=== PATIENT | female | born 1950 | race Two or more races ===

== ENCOUNTER 2016-08-07 09:01 | Emergency (ER) | payer OTHER ==
[~2016-08-07] VITALS: Ht 170.2 cm; Wt 108.9 kg
[~2016-08-07 09:01] MED LIST: CARB25TA2 PO; DULO20CA PO; LACT10SO PO; LAM100T PO; Metronidazole PO; NEO500T PO; OMEP20CA5 OR; PROP60CA8 PO; RANI150C11 PO; TRAM-297 PO
[2016-08-07] MEDS ORDERED: SODIUM CHLORIDE 0.9% 1,000 ML IV ONE ×3 (09:58→11:43)
[2016-08-07] MEDS ORDERED: SODIUM CHLORIDE 0.9% 250 ML IV ONE (09:58)
[2016-08-07 10:00] LABS: Basophils # (auto) 0 uL; Basophils % (auto) 0.5 % (0.0-2.0); Eosinophils # (auto) 0 uL; Eosinophils % (auto) 0.7 % (0.0-7.0); Hemoglobin 13.5 g/dL (12.2-16.2); Lymphocytes # (auto) 0.9 uL; Lymphocytes % (auto) 12.9 % (10.0-50.0); Mean Corpuscular Hemoglobin 33.3 pg (28.0-32.0); Mean Corpuscular Hgb Conc. 34.6 g/dL (32.0-36.0); Mean Corpuscular Volume 96.2 fL (80.0-100.0); Mean Platelet Volume 9.3 fL (7.4-10.4); Monocytes # (auto) 0.7 uL; Monocytes % (auto) 10.6 % (0.0-12.0); Neutrophils % (auto) 75.3 % (37.0-80.0); Platelet Count (auto) 118 10^3/uL (140-450); Red Cell Distribution Width 14.8 % (11.6-16.0); White Blood Cell 6.7 10^3/uL (4.4-10.8)
[2016-08-07] MEDS ORDERED: PIPERACILLIN-TAZOB 3.375GM 100 ML IV ONE (10:00)
[2016-08-07 10:20] LABS: Lactic Acid w/Reflex 2.1 mmol/L (0.4-2.0)
[2016-08-07 10:27] LABS: Albumin 2.5 g/dL (3.4-5.0); BUN/Creatinine Ratio 13.8; Bilirubin, Total 4.8 mg/dL (0.2-1.0); Calcium 7.8 mg/dL (8.5-10.1); Magnesium 2.1 mg/dL (1.6-2.6); Partial Thromboplastin Time 28.3 sec (22.64-33.71); Total Protein 6.5 g/dL (6.4-8.2)
[2016-08-07] MEDS ORDERED: ONDANSETRON HCL 4 MG/2 ML VIAL IV ONE (10:30)
[2016-08-07] MEDS ORDERED: MORPHINE SULFATE 4 MG/ML SYRG IV ONE (10:30)
[2016-08-07 10:38] LABS: INR 1.18 (0.9-1.15); Prothrombin Time 12.7 sec (9.37-12.3)
[2016-08-07 10:44] LABS: Potassium 3.6 mmol/L (3.5-5.1)
[2016-08-07 10:50] LABS: REFLEX LACTIC ACID YES OR NO YES
[2016-08-07 11:01] LABS: B-Type Natriuretic Peptide 49.76 pg/mL (0-100)
[2016-08-07 11:10] LABS: Temperature: 22.9 C (20.0-25.0)
[2016-08-07] MEDS ORDERED: metroNIDAZOLE 500MG/100ML 100 ML IV ONE (11:45)
[2016-08-07] MEDS ORDERED: VANCOMYCIN 1GM/250ML D5W 250 ML IV ONE (15:15)
[2016-08-07 16:45] LABS: Urine Color Yellow (Yellow); Urine Glucose Normal (Normal); Urine Ketone Negative (Negative); Urine Nitrite Negative (Negative); Urine RBC 2 /hpf (0 - 4); Urine Squamous Epithelial Cell FEW /hpf (<5)
[2016-08-07 17:05] LABS: Urine Bilirubin POSITIVE (Negative); Urine Blood 1+ /uL (Negative)
[2016-08-07 18:01] VITALS: BP 136/64
== END 2016-08-07 18:43 | disposition home or self-care (01) ==
LOC: ER 09:01
DX: A41.9 Sepsis, unspecified organism (principal); R53.1 Weakness; M19.90 Unspecified osteoarthritis, unspecified site; Z85.3 Personal history of malignant neoplasm of breast; E78.5 Hyperlipidemia, unspecified; K74.60 Unspecified cirrhosis of liver; Z90.49 Acquired absence of other specified parts of digestive tract
CPT/HCPCS: 36415; 71020; 74176; 80053; 81001; 82140; 83605; 83735; 83880; 84484; 85025; 85610; 85730; 87040; 96365; 96366; 96367; 96375; 99291; J2270; J2405; J2543; J3370; J3490; J7030; 87077; 87186; 93005

== ENCOUNTER 2016-12-25 12:09 | Inpatient (IN) | payer OTHER ==
[~2016-12-25] VITALS: Ht 170.2 cm; Wt 105.0 kg
[~2016-12-25 12:09] MED LIST changes: -LACT10SO PO; +LACT10SO3 PO; -OMEP20CA5 OR; +OMEP20CA74 OR
[2016-12-25] MEDS ORDERED: cefTRIAXone 1GM/50ML D5W 50 ML IV ONE (13:15)
[2016-12-25 13:21] LABS: Basophils # (auto) 0.1 uL; CONDITION Y; Eosinophils # (auto) 0.3 uL; Eosinophils % (auto) 6.9 % (0.0-7.0); Hematocrit 36.1 % (36.0-46.0); Hemoglobin 12.8 g/dL (12.2-16.2); Lymphocytes # (auto) 1.1 uL; Lymphocytes % (auto) 28.7 % (10.0-50.0); Mean Corpuscular Hemoglobin 35.1 pg (28.0-32.0); Mean Corpuscular Hgb Conc. 35.3 g/dL (32.0-36.0); Mean Corpuscular Volume 99.4 fL (80.0-100.0); Mean Platelet Volume 8.7 fL (7.4-10.4); Monocytes # (auto) 0.5 uL; Monocytes % (auto) 11.5 % (0.0-12.0); Neutrophils % (auto) 50.9 % (37.0-80.0); Platelet Count (auto) 129 10^3/uL (140-450); Red Cell Distribution Width 16.8 % (11.6-16.0)
[2016-12-25 13:44] LABS: Albumin 2.5 g/dL (3.4-5.0); Anion Gap 6 (5-15); Aspartate Aminotransferase 51 U/L (15-37); Blood Urea Nitrogen 9 mg/dL (7-18); Calcium 8.1 mg/dL (8.5-10.1); Carbon Dioxide 26 mmol/L (21-32); Chloride 111 mmol/L (98-107); GFR African American 99 mL/min; GFR Non-African American 82 mL/min; Glucose 92 mg/dL (74-106); Potassium 3.5 mmol/L (3.5-5.1); Sodium 143 mmol/L (136-145)
[2016-12-25 13:49] LABS: Alkaline Phosphatase 141 U/L (45-117); Bilirubin, Total 2.7 mg/dL (0.2-1.0); Total Protein 5.9 g/dL (6.4-8.2)
[2016-12-25 13:54] LABS: B-Type Natriuretic Peptide 53.88 pg/mL (0-100)
[2016-12-25 13:56] LABS: Temperature: 22.4 C (20.0-25.0)
[2016-12-25] MEDS ORDERED: SPIR50TA23 PO (14:39)
[2016-12-25] MEDS ORDERED: FURO20TA PO (14:39)
[2016-12-25] MEDS ORDERED: NITROGLYCERIN 0.4 MG SL TAB SL PRN (14:45)
[2016-12-25] MEDS ORDERED: FUROSEMIDE 20 MG/2 ML VIAL IV ONE (15:00)
[2016-12-25] MEDS ORDERED: LEVOFLOXACIN 500MG 100 ML IV ONE (15:00)
[2016-12-25] MEDS: MORPHINE SULF INJ 2 MG/ML SYRINGE 1ML IV PRN (15:06)
[2016-12-25 16:25] LABS: INR 1.25 (0.9-1.15); Partial Thromboplastin Time 29.9 sec (22.64-33.71); Prothrombin Time 13.7 sec (9.37-12.3)
[2016-12-25 17:01] LABS: Urine Bilirubin Negative (Negative); Urine Blood Negative /uL (Negative); Urine Color Yellow (Yellow); Urine Glucose Normal (Normal); Urine Hyaline Cast FEW /lpf (0 - 2); Urine Ketone Negative (Negative); Urine Mucus FEW (None Seen); Urine Nitrite Negative (Negative); Urine RBC <1 /hpf (0 - 4); Urine Squamous Epithelial Cell FEW /hpf (<5); Urine Urobilinogen Normal (Negative); Urine pH 5.5 (5.0-8.0)
[2016-12-25 20:15] VITALS: BP 124/60
[2016-12-25 21:30] VITALS: BP 124/60
[2016-12-26] MEDS: MORPHINE SULF INJ 2 MG/ML SYRINGE 1ML IV PRN ×6 (00:40→21:16)
[2016-12-26 05:00] VITALS: BP 102/41
[2016-12-26 07:01] LABS: Basophils # (auto) 0.1 uL; Basophils % (auto) 2.5 % (0.0-2.0); Eosinophils # (auto) 0.2 uL; Eosinophils % (auto) 6.4 % (0.0-7.0); Hemoglobin 12.2 g/dL (12.2-16.2); Lymphocytes % (auto) 27.9 % (10.0-50.0); Mean Corpuscular Hgb Conc. 34.9 g/dL (32.0-36.0); Mean Corpuscular Volume 100.4 fL (80.0-100.0); Mean Platelet Volume 8.6 fL (7.4-10.4); Monocytes # (auto) 0.5 uL; Monocytes % (auto) 13.2 % (0.0-12.0); Neutrophils # (auto) 1.7 uL; Nucleated Red Blood Cells % 0.6 %; Platelet Count (auto) 81 10^3/uL (140-450); Red Cell Distribution Width 16.1 % (11.6-16.0); White Blood Cell 3.4 10^3/uL (4.4-10.8)
[2016-12-26 07:07] LABS: Potassium 3.9 mmol/L (3.5-5.1)
[2016-12-26 07:12] LABS: BUN/Creatinine Ratio 16.7; Calcium 8.4 mg/dL (8.5-10.1)
[2016-12-26 08:00] VITALS: BP 126/56
[2016-12-26 08:07] VITALS: BP 126/56
[2016-12-26] MEDS ORDERED: LEVOFLOXACIN 500MG 100 ML IV SCH (10:00)
[2016-12-26] MEDS: FUROSEMIDE 20 MG/2 ML VIAL IV SCH (10:48)
[2016-12-26 12:33] VITALS: BP 134/68
[2016-12-26 17:00] VITALS: BP 117/49
[2016-12-26 22:00] VITALS: BP 160/54
[2016-12-26] MEDS ORDERED: VANCOMYCIN PER PHARMACY 0 MG IV SCH (22:00)
[2016-12-26] MEDS ORDERED: VANCOMYCIN 1GM/250ML D5W 250 ML IV ONE (22:30)
[2016-12-27] MEDS: PIPERACILLIN-TAZOB 3.375GM 100 ML IV SCH ×2 (01:36→05:48)
[2016-12-27] MEDS: MORPHINE SULF INJ 2 MG/ML SYRINGE 1ML IV PRN ×3 (01:36→12:06)
[2016-12-27 05:00] VITALS: BP 126/60
[2016-12-27 07:04] LABS: Basophils # (auto) 0.1 uL; Basophils % (auto) 2.6 % (0.0-2.0); Eosinophils # (auto) 0.3 uL; Eosinophils % (auto) 7.8 % (0.0-7.0); Hematocrit 38.6 % (36.0-46.0); Hemoglobin 13.2 g/dL (12.2-16.2); Lymphocytes # (auto) 0.9 uL; Lymphocytes % (auto) 26.3 % (10.0-50.0); Mean Corpuscular Hemoglobin 34.7 pg (28.0-32.0); Mean Corpuscular Hgb Conc. 34.4 g/dL (32.0-36.0); Mean Corpuscular Volume 100.9 fL (80.0-100.0); Mean Platelet Volume 8.9 fL (7.4-10.4); Monocytes # (auto) 0.5 uL; Monocytes % (auto) 14.7 % (0.0-12.0); Neutrophils # (auto) 1.7 uL; Neutrophils % (auto) 48.6 % (37.0-80.0); Nucleated Red Blood Cells % 0.2 %; Platelet Count (auto) 80 10^3/uL (140-450); Red Cell Distribution Width 15.5 % (11.6-16.0); White Blood Cell 3.4 10^3/uL (4.4-10.8)
[2016-12-27 07:23] LABS: Albumin 2.4 g/dL (3.4-5.0); BUN/Creatinine Ratio 15.7; Bilirubin, Total 2.5 mg/dL (0.2-1.0); Potassium 3.7 mmol/L (3.5-5.1); Total Protein 6.3 g/dL (6.4-8.2)
[2016-12-27 07:50] VITALS: BP 144/62
[2016-12-27] MEDS ORDERED: IOHEXOL 300 MG/ML 100ML BOTTLE IJ ONE (08:49)
[2016-12-27] MEDS ORDERED: VANCOMYCIN 1,250 MG in D5W 5% 250 ML IV SCH (10:00)
[2016-12-27] MEDS ORDERED: SPIRONOLACTONE 25 MG TAB PO SCH (10:00)
[2016-12-27 10:44] VITALS: BP 133/61
[2016-12-27] MEDS: FUROSEMIDE 20 MG/2 ML VIAL IV SCH (11:20)
[2016-12-27 13:48] VITALS: BP 144/62
== END 2016-12-27 14:25 | disposition hospice, home (50) | DRG 432 ==
LOC: ER 12:09 → EDBD 12:09 → TELE 12:10 → TELE-CENTR 20:15
PROVIDERS: ADMIT Internal Medicine; ATTEND Internal Medicine
PROC: 0W993ZZ Drainage of Right Pleural Cavity, Percutaneous Approach (ICD-10-PCS; principal; 2016-12-26)
PROC: BB4BZZZ Ultrasonography of Pleura (ICD-10-PCS; 2016-12-26)
DX: K74.69 Other cirrhosis of liver (principal); J18.9 Pneumonia, unspecified organism; J91.8 Pleural effusion in other conditions classified elsewhere; K76.6 Portal hypertension; R18.8 Other ascites; D69.59 Other secondary thrombocytopenia; D72.819 Decreased white blood cell count, unspecified; F17.200 Nicotine dependence, unspecified, uncomplicated; F32.9 Major depressive disorder, single episode, unspecified; F41.9 Anxiety disorder, unspecified; M19.90 Unspecified osteoarthritis, unspecified site; I10 Essential (primary) hypertension; K21.9 Gastro-esophageal reflux disease without esophagitis; Z85.3 Personal history of malignant neoplasm of breast; Z90.13 Acquired absence of bilateral breasts and nipples; Z92.21 Personal history of antineoplastic chemotherapy; Z90.49 Acquired absence of other specified parts of digestive tract; Z90.710 Acquired absence of both cervix and uterus; Z80.9 Family history of malignant neoplasm, unspecified; Z83.3 Family history of diabetes mellitus
CPT/HCPCS: 36415; 71010; 71260; 74176; 76604; 76942; 80048; 80053; 81001; 82140; 83605; 83735; 83880; 84484; 85025; 85610; 85730; 87040; 87081; 93005; 94761; 96365; 96375; J0696; J1956; J2543; J7060

== ENCOUNTER 2017-01-01 13:38 | Emergency (ER) | payer OTHER ==
[~2017-01-01] VITALS: Ht 167.6 cm; Wt 81.6 kg
[~2017-01-01 13:38] MED LIST changes: +FURO20TA PO; -LAM100T PO; -Metronidazole PO; -NEO500T PO; -OMEP20CA74 OR; +SPIR50TA23 PO
[2017-01-01] MEDS ORDERED: SODIUM CHLORIDE 0.9% 1,000 ML IV ONE (13:54)
[2017-01-01 14:43] LABS: Basophils # (auto) 0.1 uL; Basophils % (auto) 0.9 % (0.0-2.0); CONDITION Y; Eosinophils # (auto) 0.1 uL; Eosinophils % (auto) 1.6 % (0.0-7.0); Hematocrit 40.2 % (36.0-46.0); Lymphocytes # (auto) 1.2 uL; Lymphocytes % (auto) 14.6 % (10.0-50.0); Mean Corpuscular Hemoglobin 34.7 pg (28.0-32.0); Mean Corpuscular Hgb Conc. 34.7 g/dL (32.0-36.0); Mean Corpuscular Volume 99.9 fL (80.0-100.0); Mean Platelet Volume 8.8 fL (6.9-10.8); Monocytes # (auto) 0.7 uL; Monocytes % (auto) 9.1 % (0.0-12.0); Neutrophils # (auto) 5.9 uL; Neutrophils % (auto) 73.8 % (37.0-80.0); Platelet Count (auto) 174 10^3/uL (140-450)
[2017-01-01 14:56] LABS: Urine Bilirubin Negative (Negative); Urine Blood TRACE /uL (Negative); Urine Ca Oxalate Crystal FEW (None Seen); Urine Color Yellow (Yellow); Urine Glucose Normal (Normal); Urine Hyaline Cast MANY /lpf (0 - 2); Urine Ketone Negative (Negative); Urine Mucus FEW (None Seen); Urine Nitrite Negative (Negative); Urine RBC 3 /hpf (0 - 4); Urine Squamous Epithelial Cell FEW /hpf (<5); Urine Urobilinogen Normal (Negative); Urine pH 5.5 (5.0-8.0)
[2017-01-01 14:58] LABS: INR 1.34 (0.9-1.15); Partial Thromboplastin Time 30.1 sec (22.64-33.71); Prothrombin Time 14.7 sec (9.37-12.3)
[2017-01-01 15:02] LABS: Albumin 2.7 g/dL (3.4-5.0); BUN/Creatinine Ratio 5.1; Calcium 8.1 mg/dL (8.5-10.1); Potassium 4.2 mmol/L (3.5-5.1)
[2017-01-01 15:07] LABS: Bilirubin, Total 3.1 mg/dL (0.2-1.0); Total Protein 6.5 g/dL (6.4-8.2)
[2017-01-01 15:11] LABS: B-Type Natriuretic Peptide 94.8 pg/mL (0-100)
[2017-01-01] MEDS ORDERED: LACTULOSE 20Gm/30ML SOLN PO ONE (15:15)
[2017-01-01 15:16] LABS: Temperature: 23.7 C (20.0-25.0)
[2017-01-01] MEDS ORDERED: LACTULOSE 20Gm/30ML SOLN PR ONE (15:45)
[2017-01-01] MEDS ORDERED: LIDOCAINE 2%HCL (LOCAL ANESTH.) INJ 20ML MDV ONE (16:08)
[2017-01-01] MEDS ORDERED: LIDOCAINE 1% HCL (LOCAL ANESTH.) INJ 20ML MDV ONE (16:09)
[2017-01-01 16:21] VITALS: BP 96/72
[2017-01-01] MEDS ORDERED: RIFA550T PO (17:50)
[2017-01-01] MEDS ORDERED: LACT10SO3 PO (17:51)
[2017-01-01 23:23] LABS: Body Fluid Polymorphonuclear 39 %
== END 2017-01-01 18:04 | disposition home or self-care (01) ==
LOC: ER 13:38 → EDBD 13:38 → ER 18:04
DX: K72.90 Hepatic failure, unspecified without coma (principal); J90 Pleural effusion, not elsewhere classified; R41.82 Altered mental status, unspecified; K21.9 Gastro-esophageal reflux disease without esophagitis; I10 Essential (primary) hypertension; Z90.710 Acquired absence of both cervix and uterus; Z90.49 Acquired absence of other specified parts of digestive tract; Z88.8 Allergy status to other drugs, medicaments and biological substances; Z79.899 Other long term (current) drug therapy
CPT/HCPCS: 36415; 51702; 70450; 71010; 74176; 76604; 76942; 80053; 81001; 82140; 83880; 83986; 84484; 85025; 85610; 85730; 87070; 87205; 88305; 89051; 93005; 96360; 96361; 99291; C1729; J2001